=== PATIENT | female | born 1940 | race Caucasian/White ===

== ENCOUNTER 2017-02-06 14:23 | Inpatient (IN) | payer MEDICARE, OTHER ==
--- NOTE | ~2017-02-06 | HP ---
History And Physical [place] [id number] [facility] [place]. [address] NAME: MARK FORTE : 39 STATUS : ADM Obdulio PAT#: [id number] AGE: 76 ADM/REG DATE : 02/06/17 MR#: [id number] REPORT SERV DATE: 02/07/17 DICTATED BY: PARAG CALDWELL DATE: 02/07/17 REPORT STATUS : Draft TRANSCRIBED BY: MODL DATE: 02/07/17 DATE OF ADMISSION: 02/06/2017 IDENTIFYING DATA: A 76-year-old white female, whose PCP is Dr. Tree Marlow, TEST ENGINE EVALUATOR/Oncology doctor is Dr. Conway. CHIEF COMPLAINT: Renal failure. HISTORY OF PRESENT ILLNESS: This history of present illness is obtained by talking directly with the patient as well as with her son at the bedside as well as reviewing [email or web address] and [facility]. The patient has had recent falls over the last few weeks that are new for her. She also had recently been to her PCP, Dr. Marlow, and was diagnosed as having a urinary tract infection. She states she was quite surprised at this because she has always been very much able to tell when she has a urinary tract infection based on her symptoms, and the urinalysis collected on 01/29/2017 was at an office visit. She states she had no symptoms. She had a large amount of leukocyte esterase, 85 white cells, a few white cell clumps, less than 1 squamous epithelium. She also had a lab work done at that time, which showed a BUN of 60 and creatinine of 1.98. Prior to that, she had already been falling, and she had one big fall where she fell backwards down a flight of stairs. She states she did not pass out. As a result of the fall, she states she did not pass out. She did not go for medical evaluation at that time. She has had episodes intermittently of falls since then with bruises and scrapes and some episodes where she was noted to have slurring of her speech. Based on the urinalysis, she reportedly was given a prescription for trimethoprim and sulfamethoxazole. Then, she was brought to the emergency room yesterday because she was so weak, she has not been able to get up out of bed. The paramedics noticed that her heart rate was exceedingly slow. Instead of taking her to [place] as was the original destination requested by the patient, they stopped at [facility] because it was closer. She was found to be in complete heart block. She was admitted under observation status to cardiology team. Dr. Granados saw her, his partner then, Dr. Sanchez saw the patient, felt the patient needed a pacemaker. He is an peanut shaker. She had bradycardia despite isoproterenol infusion. She underwent implantation of the pacer on 02/06/2017. She also in the emergency room was noted to have acute kidney injury, so Dr. Ruddy Rendon saw her and felt she needed acute dialysis, so he asked Dr. Nelson to put in a Vas-Catheter, which was done on 02/06/2017. The patient was dialyzed. Today, Cardiology states from their perspective, she could go home, but obviously because of her renal failure, she cannot. Nephrology is not going to be her attending because she is not an established outpatient dialysis patient, already so they asked us to admit her to the hospital. She and son at bedside state they do not know of any history of chronic kidney disease for her. Reviewing her labs in the past, I see that in 01/2016, her creatinine was up to 1.32, but other than that, her renal function has been based on creatinines normal in the past. Renal ultrasound done on today shows decreased size of both kidneys with increased renal History And Physical [address] [address] NAME: MARK FORTE : 39 STATUS : ADM Obdulio PAT#: [id number] AGE: 76 ADM/REG DATE : 02/06/17 MR#: [id number] REPORT SERV DATE: 02/07/17 DICTATED BY: PARAG CALDWELL DATE: 02/07/17 REPORT STATUS : Draft TRANSCRIBED BY: MODL DATE: 02/07/17 cortex echo consistent with chronic medical renal disease that was new since 08/31/2015. The son states that after dialysis yesterday, the patient seemed much more lucid to him. REVIEW OF SYSTEMS: On review of systems, she has had some mild cough. She has had occasional diarrhea for a couple weeks, some incontinence, it is intermittent. She has a little bit of leg edema. She thinks her weight has changed, but she is not sure. She is a bit more sluggish in answering questions today than I would expect. She denies fever, chest pain, shortness of breath, abdominal pain, nausea, vomiting, rectal bleeding, melena, dysuria, rash, or tick bites. ALLERGIES: SHE CLAIMS ALLERGIES TO CODEINE AND NAPROXEN. PAST MEDICAL HISTORY: She denies any history of diabetes, COPD, myocardial infarction, congestive heart failure, stroke, seizure, peptic ulcer, biliary tract disease, liver disease, renal disease, thyroid disease, or sleep apnea. She had stage IIIC ovarian cancer, treated with surgical resection and omentectomy and chemotherapy, and she completed her chemotherapy in 08/2016. She has hypertension, history of asthma, history of migraines, and history of impaired glucose tolerance. She has had colon polyps on colonoscopies. She has had a peripheral neuropathy since chemotherapy. HOME MEDICATIONS: Tylenol p.r.n. pain, vitamin C 500 mg daily, aspirin 81 mg daily, Lipitor 10 mg q.h.s., Super B Complex once a day, Caltrate 1200 mg daily, vitamin D 400 units daily, Celexa 10 mg daily, Benadryl 25 mg at bedtime, gabapentin 100 mg at bedtime, multivitamin once a day, Prilosec 20 mg daily, Ditropan 5 mg every evening, cranberry tablet 2 tablets twice a day, L-glutamine powder three 3 times a day. PAST SURGICAL HISTORY: She had the pacer placed yesterday. She has had bilateral salpingo oophorectomy-and omentectomy. She had a port placed for chemotherapy. She has had a right shoulder replacement. She has had two lumbar spine surgeries, bilateral carpal tunnel syndrome. She has had a trigger finger release, right total knee arthroplasty, D and C, and cataract surgery. SOCIAL HISTORY: She denies use of tobacco, but she drinks at least 1-1/2 ounces of vodka per day. She is . 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 She walks without assistive device. FAMILY HISTORY: Mother had colon cancer. Father with stroke and prostate cancer. Brother with heart disease, diabetes, and there is some alcoholism in the siblings. DIAGNOSTIC DATA: Chest x-ray is a portable done on 02/06/2017 shows right shoulder replacement, port in the right chest, pacemaker in the left chest, and a right IJ catheter, may be some slight atelectasis at the right lung base, otherwise grossly clear lung spann per my interpretation. History And Physical [address] [place]. [address] NAME: MARK FORTE : 39 STATUS : ADM Obdulio PAT#: [id number] AGE: 76 ADM/REG DATE : 02/06/17 MR#: [id number] REPORT SERV DATE: 02/07/17 DICTATED BY: PARAG CALDWELL DATE: 02/07/17 REPORT STATUS : Draft TRANSCRIBED BY: MODL DATE: 02/07/17 Ultrasound 02/07/2017 shows decreased size of bilateral kidneys with increased renal cortical echotexture consistent with medical renal disease new since 08/31/2015's renal ultrasound. CT scan of the brain without contrast on 02/06/2017, no evidence of acute intracranial pathology. Mild cerebral atrophy with supratentorial white matter disease consistent with microangiopathy. Sodium 143; potassium 4.3; chloride 109; CO2 is 23, it was down to a low of 12 yesterday; BUN is 67 right now, was at a peak of 146 yesterday; creatinine is 2.69, it was at a peak of 5.55 yesterday; glucose is 86. Calcium 8.3. Liver enzymes today remarkable for albumin of 3.4, alkaline phosphatase 200, ALT of 263, AST of 188. Troponin on admission 0.04. B- natriuretic peptide on admission was 1128.4. Her last A1c was 5.3% on 01/29/2017. Lactic acid on 02/06/2017 was 0.5. Hepatitis profile on 02/06/2017 all nonreactive. HIV on that same date nonreactive. Today's white count is 5.9, hemoglobin 8.1, MCV is macrocytic at 34.3, and platelets are 137,000. Pro time on 02/06/2017 is 17.4, INR 1.4, PTT is 23.1. PHYSICAL EXAMINATION: VITAL SIGNS: Temperature is 98.7, pulse 70, respirations 20, blood pressure 163/77, and O2 saturation 94% on room air. GENERAL: A well-developed female, who appears in no acute distress. HEENT: Head is atraumatic. Pupils are equal, round, and reactive to light. Extraocular motions are intact. No scleral icterus noted. Ear canals and TMs unremarkable. No inflammatory changes noted externally. Nose, noninflamed. Septum midline. Nares patent. Mouth, moist. Good gag. No redness of the throat gums or lips. NECK: Supple. No lymph node or thyroid enlargement. The carotids have good pulses. No bruits. CHEST: There is a Vas-Catheter in the right chest. HEART: Regular rate and rhythm without murmur, gallop, click, or rub. LUNGS: Clear. Good air flow. No wheezes, no rhonchi. Normal respiratory effort. ABDOMEN: Bowel sounds positive. Soft, nondistended, nontender. No masses. No organomegaly. No bruits. EXTREMITIES: Warm. Good pulses. No clubbing, no cyanosis, no edema. No actively inflamed skin or joints. NEUROLOGIC: She is alert. She is oriented x3. Her memory is a little bit sluggish at times, but her motor is 2/5 in all four extremities. No Babinski. No clonus noted. Cranial nerves 2 through 12 are grossly normal. ASSESSMENT: 1. Acute kidney injury superimposed on chronic kidney disease (chronic kidney disease evidence is based on the renal ultrasound findings described above). The patient is status post metabolic acidosis with a bicarb that was down to 12 and status post hyperkalemia with a potassium goes up to 5.9 as part of this acute kidney injury. The patient already had evidence as of 01/29/2017 of acute kidney injury. Thereafter, she started on trimethoprim and sulfamethoxazole and was on 30 mg a day of meloxicam as well as losartan at home which may have contributed to her deterioration. It is still not clear why her renal function had dropped as of 01/29/2017. History And Physical [address] [address] NAME: MARK FORTE : 39 STATUS : ADM Obdulio PAT#: [id number] AGE: 76 ADM/REG DATE : 02/06/17 MR#: [id number] REPORT SERV DATE: 02/07/17 DICTATED BY: PARAG CALDWELL DATE: 02/07/17 REPORT STATUS : Draft TRANSCRIBED BY: MODPhilip DATE: 02/07/17 2. Status post complete heart block, treated with pacemaker, 02/06/2017. 3. Recent falls that appeared to have started prior to her acute renal failure. She does have significant peripheral neuropathies since she has been on chemotherapy. She does consume some alcohol. These may have potentially contributed to the falls, although it sounds like she does not drink enough that the family considers it a problem. 4. Acute hepatitis with elevation of ALT greater than AST, which is not consistent which is alcohol. This could be a medication, could be due to episode of low blood pressure, but I cannot find documented low blood pressures, also suggests the possibility of some intrinsic underlying liver disease. 5. Thrombocytopenia, which again suggests the possibility of liver disease especially along with elevated pro time and INR. 6. History of ovarian cancer, treated with resection and chemotherapy. 7. History of hypertension. 8. History of migraines. 9. History of chemotherapy-induced peripheral neuropathy. 10.Colon polyps. PLAN: The patient is going to be on cardiac telemetry. Hemodialysis is in process today. Nephrology will follow her up. We are going to do the anemia lab work on this patient. Also, we are also going to get CT scan of the abdomen and pelvis to look for any signs of cirrhosis, and since her alkaline phosphatase is elevated some to see if there is any signs of obstruction to her biliary system, although her total bilirubin is normal at 0.3. Family is quite concerned about her falls as is understandable, both as to the cause as well as potential traumatic results, so we are going to get an MRI of the brain if her recently placed pacemaker is pacer compatible, also have Physical Therapy assess her. We will keep her on the CIWA protocol. If she has diarrhea, we will do assessment of those. We will follow up her pro time and INR. Son is updated at the bedside at this time. RSG/MODL Parag Caldwell M.D. / [id number] CC: Ed Hull M.D. Ruddy Rendon M.D. [facility] Sanchez Conway M.D.
--- NOTE | ~2017-02-06 | CN ---
Consultation Report [facility] [address] [place]. [address] NAME: MONIKA FORTE : 39 STATUS : ADM Obdulio PAT#: [id number] AGE: 76 ADM/REG DATE : 02/06/17 MR#: [id number] REPORT SERV DATE: 02/07/17 DICTATED BY: REEMA RENDON DATE: 02/06/17 REPORT STATUS : Draft TRANSCRIBED BY: MODL DATE: 02/06/17 NEPHROLOGY CONSULT DATE OF CONSULTATION: 02/06/2017 Thank you for this consult. Chart reviewed. Patient examined. REASON FOR CONSULTATION: Acute kidney injury with hyperkalemia and metabolic acidosis with altered mental status. HISTORY OF PRESENT ILLNESS: Monika Forte is a chronically ill 76-year-old female with a history of hypertension, with a diagnosis of ovarian cancer in 2015. She underwent an exploratory laparotomy with bilateral salpingo-oophorectomy with omentectomy with radical pelvic dissection and then eventually chemotherapy. She finished her chemotherapy in August 2016 and apparently is in remission at this time. For the last five to six weeks, she has been having frequent falls and has had periods where she has hit her head. She cannot stand up because her balance is off. She has had decreased p.o. intake and has not been able to eat much. She has not had any nausea and vomiting, but has had bladder and bowel incontinence. She saw her primary care provider last week and it appears that she was in acute renal failure at that time as her creatinine was 1.9 on 01/29/2017. Previous year, her creatinine had been 0.9, and I am not having any other creatinines to compare with. She went and saw her primary care providers, recently placed on Septra last week for a UTI. She was given Septra DS one tablet twice a day for five days according to the . The patient continued to get worse and so the called 911 and they brought her to the emergency room today. Here, she was found to be in third-degree heart block with heart rate in the 20 to 30 range. She has gone for emergent pacemaker by Cardiology who apparently has admitted her. We have been asked to see her for her acute kidney injury with hyperkalemia and metabolic acidosis. I have spoken to the at length who agrees to Vas-Cath and hemodialysis after risks, benefits were explained. PAST MEDICAL HISTORY: 1. Ovarian cancer, status post surgery and chemotherapy. Apparently in remission, she finished chemotherapy in August 2016. 2. She had exploratory laparotomy with bilateral salpingo-oophorectomy with omentectomy with radical pelvic dissection in [address] Conway. 3. Hypertension. 4. Asthma. 5. Migraine headaches. 6. Right chest Port-A-Cath. 7. Previous NSAID use. 8. Chronic alcohol use. 9. Hyperlipidemia. 10.Borderline diabetes. ALLERGIES: CODEINE AND ALEVE ACCORDING TO THE . Consultation Report [address] [place]. [address] NAME: MONIKA FORTE : 39 STATUS : ADM Obdulio PAT#: [id number] AGE: 76 ADM/REG DATE : 02/06/17 MR#: [id number] REPORT SERV DATE: 02/07/17 DICTATED BY: REEMA RENDON DATE: 02/06/17 REPORT STATUS : Draft TRANSCRIBED BY: STEPHEN DATE: 02/06/17 SOCIAL HISTORY: Chronic vodka use each day. No smoking. FAMILY HISTORY: Mom had colon cancer. Dad had a stroke and prostate cancer. PRESCRIBED MEDICINES: At home include Celexa, atorvastatin, oxybutynin, omeprazole, gabapentin. She recently finished the Julra. REVIEW OF SYSTEMS: By her are not reliable due to her altered mental status. PHYSICAL EXAMINATION: VITAL SIGNS: Currently, upon examination, afebrile, blood pressure 137/55, pulse 83, respiratory rate is 18. GENERAL: She is chronically ill and on top of being acutely ill. Eyes, pupils react bilaterally. No conjunctivitis. Oropharynx, mucous membranes are dry. No lesions. NECK: Supple. No thyromegaly. No masses. Trachea is midline. LYMPHADENOPATHY: No cervical, supraclavicular, or axillary lymphadenopathy. LUNGS: Clear to auscultation. No tachypnea. CARDIOVASCULAR: Regular rate and rhythm. She has a paced rhythm. There is no JVD. GASTROINTESTINAL: Positive bowel sounds. Obese, nontender. No hepatosplenomegaly. SKIN: Decreased skin turgor. No rash. PSYCHIATRIC: Her speech is dysarthric. She is confused. She knows the year is 2016, but when I ask her the month or the day of the week, she also says 2017. She does know she is in the hospital. Her affect is very flat. NEUROLOGIC: Cranial nerves II through XII grossly intact. Sensation is grossly intact. Chest x-ray reviewed by me shows no infiltrates per my interpretation. EKG shows third-degree heart block with severe bradycardia with heart rate between 20 and 30 range. LABORATORY VALUES: Sodium 141, potassium 5, chloride 113, bicarb 12, BUN 140, creatinine 5.5, glucose 131, calcium 8.6, magnesium 3. White count 8, hemoglobin 9, hematocrit 28, platelets 169. INR is 1.4. CT brain showed no acute abnormality per the radiologist. IMPRESSION: 1. Acute kidney injury with hyperkalemia and metabolic acidosis with recent Septra use with poor p.o. intake. 2. Third-degree heart block, status post emergent pacemaker. 3. Hypertension. 4. Hyperlipidemia history. 5. History of ovarian cancer, status post surgery and chemotherapy. Finished chemo in Consultation Report [address] [place]. [address] NAME: MONIKA FORTE : 39 STATUS : ADM Obdulio PAT#: [id number] AGE: 76 ADM/REG DATE : 02/06/17 MR#: [id number] REPORT SERV DATE: 02/07/17 DICTATED BY: REEMA RENDON DATE: 02/06/17 REPORT STATUS : Draft TRANSCRIBED BY: STEPHEN DATE: 02/06/1708/2016. She is apparently in remission. 6. Altered mental status. 7. Frequent falls. PLAN: 1. Recommendation Vas-Cath and hemodialysis today and discussed with the , Jun. He agrees after risks, benefits were explained. All questions answered. He also agrees to blood transfusions if needed. There is no need for one now. 2. Stop the Septra. 3. Give IV fluids with sodium bicarbonate. 4. Check urinalysis. 5. Check renal ultrasound. 6. She is critically ill. All questions answered for the . /STEPHEN Reema Rendon M.D. / [id number] CC: Ed Pagan, M.D.
--- NOTE | ~2017-02-06 | HP ---
History And Physical [place] [id number] [facility] [place]. [address] NAME: MARK FORTE : 39 STATUS : ADM Obdulio PAT#: [id number] AGE: 76 ADM/REG DATE : 02/06/17 MR#: [id number] REPORT SERV DATE: 02/06/17 DICTATED BY: BRADLEY ESCOBEDO DATE: 02/06/17 REPORT STATUS : Draft TRANSCRIBED BY: MODL DATE: 02/06/17 DATE OF ADMISSION: 02/06/2017 REASON FOR ADMISSION: Complete heart block. HISTORY OF PRESENT ILLNESS: Ms. Forte is a pleasant 76-year-old female with a history of stage 3C ovarian cancer, status post surgical resection and chemotherapy, currently in remission per , hypertension, asthma, and hyperlipidemia, who presents with symptoms of recurrent falling, dizziness, balance disturbance as well as slurred speech that has been progressive and increasing in frequency over the past one to two weeks. Several weeks ago, she fell and this had not happened up until approximately one to two weeks ago again. Over the past one-two weeks, she has fallen several times as documented in her 's log of events. She otherwise has had intermittent slurred speech that has been more persistent as of the last three-four days. She has no cardiovascular history. In speaking with her, she has no other specific complaints at this point in time. ALLERGIES: CODEINE, NAPROSYN. PAST MEDICAL HISTORY: As above. SOCIAL HISTORY: The patient lives at home with her . Under normal circumstances, she used to function independently. She does not do drugs or smoke. She does drink wine approximately one glass per evening. FAMILY HISTORY: Noncontributory for premature cardiovascular disease. REVIEW OF SYSTEMS: As above, all other systems otherwise negative. PHYSICAL EXAMINATION: VITAL SIGNS: Blood pressure 123/85, pulse 26 beats per minute, afebrile. GENERAL: Well developed, well nourished, no acute distress. NEURO: Awake, alert and oriented x3; no focal deficits, appropriate mood. HEENT: Moist mucous membranes, anicteric sclerae, no nasal discharge. NECK: No JVD, no carotid bruit. LUNGS: Clear to auscultation bilaterally, no wheezes, rales or rhonchi. CV: Bradycardic. No murmurs, rubs, or gallops. ABD: Soft, non-tender, non-distended, no rebound or guarding. EXT: No pitting edema, normal distal pulses. SKIN: Warm, dry and intact; no rash. PERTINENT TEST FINDINGS: Potassium 5.9, creatinine 5.96, BUN 146, hemoglobin 9.5, troponin 0.04. EKG with a complete heart block. IMPRESSION AND PLAN: Ms. Forte is a pleasant 76-year-old female with hypertension, hyperlipidemia, and stage 3C ovarian cancer, status post surgical resection and History And Physical [address] [address] NAME: MARK FORTE : 39 STATUS : ADM Obdulio PAT#: [id number] AGE: 76 ADM/REG DATE : 02/06/17 MR#: [id number] REPORT SERV DATE: 02/06/17 DICTATED BY: BRADLEY ESCOBEDO DATE: 02/06/17 REPORT STATUS : Draft TRANSCRIBED BY: MODL DATE: 02/06/17 chemotherapy, who presents now with progressive symptoms of falling, slurred speech, and balance disturbance over the past one to two weeks in the setting of complete heart block. I have the following recommendations by problem below: 1. Complete heart block-n.p.o. Consult EP for pacemaker today. Continue Isuprel drip for now. She is hemodynamically stable. Check an echocardiogram. Trend enzymes. 2. Acute kidney injury-she is in worsening kidney injury with markedly elevated renal parameters, BUN 146, creatinine 5.96. This is likely due to her poor perfusion state. We will trend these, as well as have renal evaluate her pending her changes in renal parameters as well as urine output following pacemaker implantation. 3. Hypertension-controlled, manage as above. VR/MODL Bradley Escobedo MD / [id number] CC: Jake Sanchez M.D. Tree Marlow M.D.
--- NOTE | ~2017-02-06 | DS ---
Discharge Summary [facility] [address] [place]. [address] NAME: MARK FOTRE : 39 STATUS : DIS IN PAT#: [id number] AGE: 76 ADM/REG DATE : 02/07/17 MR#: [id number] REPORT SERV DATE: 02/12/17 DICTATED BY: YRN SOFIA DATE: 02/11/17 REPORT STATUS : Draft TRANSCRIBED BY: MODL DATE: 02/11/17 ADMISSION DATE: 02/07/2017 DISCHARGE DATE: 02/11/2017 HISTORY OF PRESENT ILLNESS: The patient is a 76-year-old female with a history of stage III ovarian cancer, status post surgical resection and chemotherapy, currently in remission; hyperlipidemia; hypertension; CKD, who presented to the hospital and was admitted initially by Cardiology due to complete heart block. For further details, please refer to H and P dictated by Dr. Granados on 02/06/2017. HOSPITAL COURSE: The patient was managed by Cardiology for heart block with eventual placement of a pacemaker after completion of cardiac management. The patient was noted to be in acute renal failure requiring hemodialysis. Given completion of management for complete heart block, the patient was transferred under Hospitalist Service for management of her SKYLER. Given severely elevated creatinine level from baseline, Nephrology was consulted. Status post Nephrology evaluation, it was deemed that the patient needed an emergent dialysis. Vas-Cath was placed by Surgery and hemodialysis initiated. For further details, please refer to H and P dictated by Dr. Caldwell on 02/07/2017. I assumed care of the patient on 02/09/2017. At the time of my assumption of care, dialysis was held to see if the patient's kidneys would recover. At the time of my assumption of care, the patient was hemodynamically stable. Her creatinine has progressively trended down from a high of 2.69 and it is currently 1.48. Given the significant improvement in her creatinine, her Vas-Cath will be removed today and the patient, from Nephrology standpoint, has been cleared for discharge. Other medical problems during her hospitalization included elevated liver function tests. Those have been trended throughout her hospitalization and they have been gradually trending down. In the setting of elevated liver enzymes, her statin medications for hyperlipidemia have been held pending normalization of her liver function test. Given the significant history obtained during admission of a recent episode of fall, the patient was initially evaluated by Physical Therapy with recommendations for inpatient rehab. However, during her hospital course, the patient has significantly improved with significant improvement in her balance. The patient has been reevaluated by Physical Therapy. Per their new recommendations, the patient can be discharged home with Home Health PT. Given completion of workup, given recovery of her kidneys, given her hemodynamic stability, the patient will be discharged home with Home Health PT to follow up with primary care physician. Plan has been discussed with the patient, who voices understanding and is agreeable with this plan. DISCHARGE DIAGNOSES: 1. Acute kidney injury. 2. CKD stage 3. 3. Hypertension. 4. Elevated liver enzymes. 5. Complete heart block. 6. Dyslipidemia. DISCHARGE EXAM: VITAL SIGNS: Blood pressure 141/60, pulse of 72, respirations 17, O2 Discharge Summary [address] [address] NAME: MARK FORTE : 39 STATUS : DIS IN PAT#: [id number] AGE: 76 ADM/REG DATE : 02/07/17 MR#: [id number] REPORT SERV DATE: 02/12/17 DICTATED BY: YRN SOFIA DATE: 02/11/17 REPORT STATUS : Draft TRANSCRIBED BY: MODPhilip DATE: 02/11/17 saturation 96% on room air, temperature 98.5. GENERAL: The patient lying in bed, in no acute distress. Appears stated age. Speaking in full sentences age. HEENT: Normocephalic, atraumatic. Extraocular motors intact. Moist oral mucosa. Anicteric sclerae. No conjunctival injection. No conjunctival pallor. NECK: Trachea midline and symmetric. No JVD noted. No thyromegaly present. CHEST: Nontender to palpation. CARDIOVASCULAR: Regular rate and rhythm. S1, S2 positive. 3/6 systolic murmur noted in the precordium. No gallop sounds noted. LUNGS: Clear to auscultation bilaterally. Normal respiratory effort. ABDOMEN: Positive bowel sounds. Nontender, nondistended. EXTREMITIES: No cyanosis, no clubbing, no edema. NEURO: Alert and oriented x3. No focal deficits appreciated. DISCHARGE MEDICATIONS: Amlodipine 10 mg p.o. daily, ascorbic acid 500 mg p.o. daily, aspirin 81 mg p.o. daily, citalopram 10 mg p.o. daily, vitamin D 400 units p.o. daily, Benadryl 25 mg p.o. at bedtime, gabapentin 100 mg p.o. at bedtime, multivitamin tab, oxybutynin 5 mg p.o. every evening, omeprazole 20 mg p.o. daily, atorvastatin 40 mg p.o. daily to be started on 02/18/2017. DISPOSITION: The patient will be discharged home with home PT. ACTIVITY: As tolerated. DIET: Renal diet. Greater than 30 minutes was spent coordinating care, planning discharge, counseling, dictation of note, and medication reconciliation. KINSEY/STEPHEN Yrn Sofia MD / [id number] CC: MD Tree Velazquez M.D.
--- NOTE | ~2017-02-06 | OP ---
Record Of Operation [facility] [address] [place]. [address] NAME: MARK FORTE : 38 STATUS : ADM Obdulio PAT#: [id number] AGE: 76 ADM/REG DATE : 02/06/17 MR#: [id number] REPORT SERV DATE: 02/07/17 DICTATED BY: DC NELSON DATE: 02/06/17 REPORT STATUS : Draft TRANSCRIBED BY: MODL DATE: 02/06/17 DATE OF PROCEDURE: 02/06/2017 PREOPERATIVE DIAGNOSIS: Acute kidney injury. POSTOPERATIVE DIAGNOSIS: Acute kidney injury. PROCEDURE: Right IJ Vas-Cath. SURGEON: Dc Nelson M.D. WEBBING SE[employer] POUND NET: None. ANESTHESIA: Local. INDICATIONS: The patient is a 76-year-old female who has acute kidney injury with uremia and hyperkalemia. I talked to her and her about the risks, benefits, and alternatives of Vas-Cath placement. They agreed to proceed. DESCRIPTION OF PROCEDURE: After informed consent was obtained, the patient's right neck and chest were prepped and draped in usual sterile fashion. Ultrasound-guided access was obtained of the right internal jugular vein. The ultrasound image was documented on the chart. I passed a wire centrally. I dilated the tract. I placed a 15 cm Vas-Cath. I aspirated and flushed it. It was packed with saline. A sterile dressing was applied after it was sutured in place. A chest x-ray was ordered to confirm proper placement. The patient tolerated the procedure well without any intraprocedural complications noted. DISABILITY PROGRAM NAVIGATOR/STEPHEN Dc Nelson M.D. / [id number] CC: Ed Pagan M.D. Brant Holt, M.D.
--- NOTE | ~2017-02-06 | CN ---
Consultation Report [facility] [address] [place]. [address] NAME: MONIKA FORTE : 38 STATUS : ADM Obdulio PAT#: [id number] AGE: 76 ADM/REG DATE : 02/06/17 MR#: [id number] REPORT SERV DATE: 02/06/17 DICTATED BY: JAKE SANCHEZ DATE: 02/06/17 REPORT STATUS : Draft TRANSCRIBED BY: MODL DATE: 02/06/17 URGENT ELECTROPHYSIOLOGY CONSULTATION DATE OF CONSULTATION: 02/06/2017 REQUESTING PHYSICIAN: Bradley Granados MD INDICATIONS: Complete AV block, alteration in mental status, and falls. HISTORY OF PRESENT ILLNESS: Monika Forte is a 76-year-old female, who has had several weeks of progressive weakness, several falls, some confusion, and loss of balance. She presented to the emergency room via EMS this morning and found to be in complete AV block. She has started on Isuprel drip and despite that continues to have third-degree AV block with junctional escape in the 30s. On my examination, she has some confusion and difficult time answering questions. Her is present. We were asked to see the patient by Dr. Granados. No history of ischemic heart disease or kidney disease. PAST MEDICAL HISTORY: Treated ovarian cancer. HOME MEDICATIONS: Listed in [facility] form and reviewed. SOCIAL HISTORY: No present smoking. FAMILY HISTORY: Reviewed and noncontributory. REVIEW OF SYSTEMS: As per the HPI. Otherwise, all other review of systems are negative. PHYSICAL EXAMINATION: VITAL SIGNS: Blood pressure 118/78, pulse ranges between 32 and 78 beats per minute. GENERAL: Appears stated age, no distress. EYES: Sclerae anicteric, no arcus senilis. MOUTH: Oral mucosa moist, lips acyanotic. NECK: Jugular venous pressure normal, no carotid bruits. LUNGS: Clear to auscultation bilaterally, normal inspiratory effort. CARDIAC: Irregular rhythm with a 2/6 systolic murmur and bradycardic response. ABDOMEN: Soft, nondistended, nontender. EXTREMITIES: No edema. SKIN: Warm and dry. NEURO/PSYCH: Awake, but confused and has difficult time answering questions. LABORATORY DATA: Sodium 139, potassium 5.9, creatinine 5.46, hemoglobin 9.5, and troponin 0.04. Consultation Report [facility] [address] [place]. [address] NAME: MONIKA FORTE : 38 STATUS : ADM Obdulio PAT#: [id number] AGE: 76 ADM/REG DATE : 02/06/17 MR#: [id number] REPORT SERV DATE: 02/06/17 DICTATED BY: JAKE SANCHEZ DATE: 02/06/17 REPORT STATUS : Draft TRANSCRIBED BY: MODL DATE: 02/06/17 IMPRESSION: 1. Falls. 2. Complete atrioventricular block with bradycardia despite isoproterenol infusion. 3. Acute kidney injury. 4. History of treated ovarian cancer with a right chest Port-A-Cath. RECOMMENDATIONS: Support rate with Isuprel or dopamine. Plan to proceed with implantation of a dual-chamber pacemaker. I discussed the procedure with the patient and family including her . Risks include, but not limited to bleeding, infection, vascular complications, failure to place the lead, lead dislodgement, pneumothorax. All questions were answered. The patient and family wished to proceed. Otherwise, IV fluids for hydration and renal assessment. BIANCA/STEPHEN Jake Sanchez M.D. / [id number] CC: Ed Pagan M.D.
[2017-02-06 12:59] LABS: BASOPHILS 0.2 %; BASOPHILS ABSOLUTE 0.02 10/3/uL (0.0-0.16); EOSINOPHILS 0.7 %; EOSINOPHILS ABSOLUTE 0.06 10/3/uL (0.0-0.53); ER CBC TAT 0 Hrs 07 Mins; HEMOGLOBIN 9.5 g/dL (12.0-16.0); IMMATURE GRANULOCYTES 0.6 %; IMMATURE GRANULOCYTES ABSOLUTE 0.05 10/3/uL (0.0-0.11); LYMPHOCYTES 10.9 %; LYMPHOCYTES ABSOLUTE 0.95 10/3/uL (0.67-4.30); MEAN CORPUS HGB CONC 33.5 g/dL (32.0-36.0); MEAN CORPUSCULAR HEMOGLOB 34.2 pg (26.0-34.0); MEAN CORPUSCULAR VOLUME 102.2 fL (80-100); MEAN PLATELET VOLUME 10.3 fL (9.2-13.0); MONOCYTES 7.7 %; MONOCYTES ABSOLUTE 0.67 10/3/uL (0.21-1.20); NEUTROPHILS 79.9 %; NEUTROPHILS ABSOLUTE 6.98 10/3/uL (2.02-8.40); NUCLEATED RED BLOOD CELLS 3.1 /100WBC (0-0); RBC DISTRIBUTION WIDTH 13.7 % (12.0-16.0); RED CELL COUNT 2.78 10/6/uL (4.0-5.6); WHITE BLOOD CELLS 8.7 10/3/uL (4.5-10.5)
[2017-02-06 13:00] LABS: HEMATOCRIT 28.4 % (36.0-48.0); MANUAL DIFF NO %; PLATELET COUNT 169 10/3/uL (150-400)
[2017-02-06 13:05] LABS: INTERNATIONAL NORMAL RATI 1.4 UNITS (-); PARTIAL THROMBO TIME 23.1 SEC (22.5-37.2)
[2017-02-06 13:06] LABS: PROTIME (NOT ORD) 17.4 SEC (12.0-14.5)
[2017-02-06 13:14] LABS: CALCIUM, SERUM 8.9 MG/DL (8.5-10.4); CHEST PAIN PROFILE TAT 0 Hrs 22 Mins; CHLORIDE, SERUM 110 MMOL/L (96-112); SODIUM, SERUM 139 MMOL/L (135-148); TROPONIN I 0.04 NG/ML (<0.05)
[2017-02-06 13:15] LABS: BUN (BLOOD UREA NITROGEN) 146 MG/DL (6-23); CO2 (CARBON DIOXIDE) 16 MMOL/L (24-34); CREATININE 5.46 MG/DL (0.55-1.02); GFR AFRICAN AMERICAN 8 ML/MIN (>=60); GFR NON AFRICAN AMERICAN 7 ML/MIN (>=60); GLUCOSE, SERUM 136 MG/DL (60-99); POTASSIUM, SERUM 5.9 MMOL/L (3.5-5.3)
[~2017-02-06 14:23] MED LIST: ACET500CAP PO; ASAB PO; BEN25 PO; BIST PO; CALTRA600D PO; CALTRAT600 PO; CELEXA10 PO; CRANBERRY TABLET PO; CRANBERRY1 TAB OR; CRANBERRY425 MG PO; DITRO5 PO; DSS PO; ENDOCET1 TAB PO; FISH OIL1200 MG PO; FISH-EPA1000 MG PO; GLUCCHONDR PO; HALF81 PO; HYZAAR 100/25 T1 TAB PO; L-GLUTAMINE POWDER PO; LIBRAX PO; LIPITOR10 PO; LORTAB 5 PO; MELA3 PO; MELATONIN5 M1 PO; METHOC500B PO; MOBIC15 MG PO; MOBIC7.5 PO; MULTIPLE VIT PO; MULTIVITAMI1 PO; NEUR100 PO; NEUR300 PO; PCET PO; PRILO PO; PVC V; SUPER B COMP PO; VITAMIN C100 M1 PO; VITAMIN D31000 UNIT PO; VITAMIN D400 UNI1 PO; VITC500 PO; ZANTAC 75 PO; ZANTAC150 MG PO; ZESTORETIC1 TA1 PO; ZESTORETIC1 TAB PO; ZOCOR40 PO; ZOFRAN8 PO; [UNRECOGNIZED DRUG - CODE] PO
[2017-02-06 19:13] LABS: CALCIUM, SERUM 8.6 MG/DL (8.5-10.4); CHLORIDE, SERUM 113 MMOL/L (96-112); CREATININE 5.55 MG/DL (0.55-1.02); GFR AFRICAN AMERICAN 8 ML/MIN (>=60); GFR NON AFRICAN AMERICAN 7 ML/MIN (>=60); GLUCOSE, SERUM 131 MG/DL (60-99); SODIUM, SERUM 141 MMOL/L (135-148)
[2017-02-06 19:14] LABS: CO2 (CARBON DIOXIDE) 12 MMOL/L (24-34)
[2017-02-06 19:15] LABS: BUN (BLOOD UREA NITROGEN) 140 MG/DL (6-23)
[2017-02-06 23:39] LABS: ALBUMIN 3.6 G/DL (3.5-5.0); CALCIUM, SERUM 8.5 MG/DL (8.5-10.4); CHLORIDE, SERUM 114 MMOL/L (96-112); PHOSPHORUS, SERUM 5.9 MG/DL (2.5-4.5); POTASSIUM, SERUM 5.3 MMOL/L (3.5-5.3); SODIUM, SERUM 143 MMOL/L (135-148)
[2017-02-06 23:41] LABS: BUN (BLOOD UREA NITROGEN) 137 MG/DL (6-23); CO2 (CARBON DIOXIDE) 17 MMOL/L (24-34); CPK 131 U/L (0-200); CREATININE 4.85 MG/DL (0.55-1.02); GFR AFRICAN AMERICAN 9 ML/MIN (>=60); GFR NON AFRICAN AMERICAN 8 ML/MIN (>=60); GLUCOSE, SERUM 89 MG/DL (60-99)
[2017-02-07 07:56] LABS: BASOPHILS 0.2 %; BASOPHILS ABSOLUTE 0.01 10/3/uL (0.0-0.16); EOSINOPHILS ABSOLUTE 0.12 10/3/uL (0.0-0.53); HEMATOCRIT 23.4 % (36.0-48.0); HEMOGLOBIN 8.1 g/dL (12.0-16.0); IMMATURE GRANULOCYTES 0.5 %; IMMATURE GRANULOCYTES ABSOLUTE 0.03 10/3/uL (0.0-0.11); LYMPHOCYTES 20.3 %; MANUAL DIFF NO %; MEAN CORPUS HGB CONC 34.6 g/dL (32.0-36.0); MEAN CORPUSCULAR HEMOGLOB 34.3 pg (26.0-34.0); MEAN CORPUSCULAR VOLUME 99.2 fL (80-100); MEAN PLATELET VOLUME 9.8 fL (9.2-13.0); MONOCYTES 8.8 %; MONOCYTES ABSOLUTE 0.52 10/3/uL (0.21-1.20); NEUTROPHILS 68.2 %; NEUTROPHILS ABSOLUTE 4.02 10/3/uL (2.02-8.40); PLATELET COUNT 137 10/3/uL (150-400); RBC DISTRIBUTION WIDTH 13.5 % (12.0-16.0); RED CELL COUNT 2.36 10/6/uL (4.0-5.6); WHITE BLOOD CELLS 5.9 10/3/uL (4.5-10.5)
[2017-02-07 08:10] LABS: A/G RATIO 1.3 (0.7-1.9); ALBUMIN 3.4 G/DL (3.5-5.0); CALCIUM, SERUM 8.3 MG/DL (8.5-10.4); CHLORIDE, SERUM 109 MMOL/L (96-112); GLOBULIN 2.6 G/DL (2.5-4.1); GLUCOSE, SERUM 86 MG/DL (60-99); POTASSIUM, SERUM 4.3 MMOL/L (3.5-5.3); SGOT(AST) 188 U/L (5-40); SGPT(ALT) 263 U/L (5-65); SODIUM, SERUM 143 MMOL/L (135-148); TOTAL BILIRUBIN 0.3 MG/DL (0-1.2)
[2017-02-07 08:11] LABS: ALKALINE PHOSPHATASE 200 U/L (45-117); BUN (BLOOD UREA NITROGEN) 67 MG/DL (6-23); CO2 (CARBON DIOXIDE) 23 MMOL/L (24-34); CREATININE 2.69 MG/DL (0.55-1.02); GFR AFRICAN AMERICAN 19 ML/MIN (>=60); GFR NON AFRICAN AMERICAN 16 ML/MIN (>=60); PHOSPHORUS, SERUM 3.5 MG/DL (2.5-4.5)
[2017-02-07 08:33] LABS: HEPATITIS B SURFACE ANTIGEN NON-REACTIVE (NON-REACT)
[2017-02-07 09:00] LABS: HEPATITIS C ANTIBODY NON-REACTIVE (NON-REACT)
[2017-02-07 09:01] LABS: HEPATITIS B CORE AB IGM NON-REACTIVE (NON-REAC)
[2017-02-07 09:02] LABS: HIV COMBO NON-REACTIVE (NON REAC)
[2017-02-07 09:03] LABS: HEP A ANTIBODY IGM NON-REACTIVE (NON-REACT)
[2017-02-07 18:06] LABS: ULTRASENSITIVE TSH 1.54 MCIU/ML (0.358-3.740)
[2017-02-08 03:53] LABS: BASOPHILS 0.2 %; BASOPHILS ABSOLUTE 0.01 10/3/uL (0.0-0.16); EOSINOPHILS 3.8 %; EOSINOPHILS ABSOLUTE 0.23 10/3/uL (0.0-0.53); HEMATOCRIT 25.7 % (36.0-48.0); HEMOGLOBIN 8.4 g/dL (12.0-16.0); IMMATURE GRANULOCYTES 0.2 %; IMMATURE GRANULOCYTES ABSOLUTE 0.01 10/3/uL (0.0-0.11); LYMPHOCYTES 22.4 %; LYMPHOCYTES ABSOLUTE 1.34 10/3/uL (0.67-4.30); MEAN CORPUSCULAR HEMOGLOB 33.2 pg (26.0-34.0); MEAN CORPUSCULAR VOLUME 101.6 fL (80-100); MEAN PLATELET VOLUME 9.3 fL (9.2-13.0); MONOCYTES 8.9 %; MONOCYTES ABSOLUTE 0.53 10/3/uL (0.21-1.20); NEUTROPHILS 64.5 %; NEUTROPHILS ABSOLUTE 3.86 10/3/uL (2.02-8.40); PLATELET COUNT 118 10/3/uL (150-400); RBC DISTRIBUTION WIDTH 13.8 % (12.0-16.0); RED CELL COUNT 2.53 10/6/uL (4.0-5.6)
[2017-02-08 03:54] LABS: MANUAL DIFF NO %; MEAN CORPUS HGB CONC 32.7 g/dL (32.0-36.0)
[2017-02-08 04:01] LABS: INTERNATIONAL NORMAL RATI 1.3 UNITS (-); PARTIAL THROMBO TIME 23.1 SEC (22.5-37.2); PROTIME (NOT ORD) 15.6 SEC (12.0-14.5)
[2017-02-08 04:07] LABS: CALCIUM, SERUM 8.1 MG/DL (8.5-10.4); CHLORIDE, SERUM 109 MMOL/L (96-112); CO2 (CARBON DIOXIDE) 26 MMOL/L (24-34); GFR AFRICAN AMERICAN 42 ML/MIN (>=60); GFR NON AFRICAN AMERICAN 36 ML/MIN (>=60); GLUCOSE, SERUM 94 MG/DL (60-99); POTASSIUM, SERUM 4.6 MMOL/L (3.5-5.3); SODIUM, SERUM 145 MMOL/L (135-148)
[2017-02-08 04:08] LABS: BUN (BLOOD UREA NITROGEN) 26 MG/DL (6-23); CREATININE 1.41 MG/DL (0.55-1.02)
[2017-02-08 04:17] LABS: A/G RATIO 1.2 (0.7-1.9); BUN (BLOOD UREA NITROGEN) 26 MG/DL (6-23); CALCIUM, SERUM 8.1 MG/DL (8.5-10.4); CHLORIDE, SERUM 109 MMOL/L (96-112); CO2 (CARBON DIOXIDE) 26 MMOL/L (24-34); CREATININE 1.44 MG/DL (0.55-1.02); GFR AFRICAN AMERICAN 40 ML/MIN (>=60); GFR NON AFRICAN AMERICAN 35 ML/MIN (>=60); GLOBULIN 2.6 G/DL (2.5-4.1); GLUCOSE, SERUM 92 MG/DL (60-99); POTASSIUM, SERUM 4.5 MMOL/L (3.5-5.3); SGOT(AST) 135 U/L (5-40); SGPT(ALT) 204 U/L (5-65); SODIUM, SERUM 145 MMOL/L (135-148); TOTAL BILIRUBIN 0.5 MG/DL (0-1.2); TOTAL PROTEIN 5.6 G/DL (6.0-8.5)
[2017-02-08 04:26] LABS: ALKALINE PHOSPHATASE 182 U/L (45-117)
[2017-02-09 05:39] LABS: BASOPHILS 0.2 %; BASOPHILS ABSOLUTE 0.01 10/3/uL (0.0-0.16); EOSINOPHILS 4.8 %; EOSINOPHILS ABSOLUTE 0.26 10/3/uL (0.0-0.53); HEMATOCRIT 25.5 % (36.0-48.0); HEMOGLOBIN 8.1 g/dL (12.0-16.0); IMMATURE GRANULOCYTES 0.4 %; IMMATURE GRANULOCYTES ABSOLUTE 0.02 10/3/uL (0.0-0.11); LYMPHOCYTES 22.4 %; LYMPHOCYTES ABSOLUTE 1.21 10/3/uL (0.67-4.30); MEAN CORPUS HGB CONC 31.8 g/dL (32.0-36.0); MEAN CORPUSCULAR HEMOGLOB 32.8 pg (26.0-34.0); MEAN CORPUSCULAR VOLUME 103.2 fL (80-100); MEAN PLATELET VOLUME 9.4 fL (9.2-13.0); MONOCYTES 8.5 %; MONOCYTES ABSOLUTE 0.46 10/3/uL (0.21-1.20); NEUTROPHILS 63.7 %; NEUTROPHILS ABSOLUTE 3.43 10/3/uL (2.02-8.40); PLATELET COUNT 98 10/3/uL (150-400); RBC DISTRIBUTION WIDTH 13.9 % (12.0-16.0); RED CELL COUNT 2.47 10/6/uL (4.0-5.6); WHITE BLOOD CELLS 5.4 10/3/uL (4.5-10.5)
[2017-02-09 05:45] LABS: MANUAL DIFF NO %
[2017-02-09 06:02] LABS: A/G RATIO 1.2 (0.7-1.9); ALBUMIN 3.1 G/DL (3.5-5.0); CALCIUM, SERUM 8.5 MG/DL (8.5-10.4); CHLORIDE, SERUM 110 MMOL/L (96-112); CO2 (CARBON DIOXIDE) 25 MMOL/L (24-34); GFR AFRICAN AMERICAN 36 ML/MIN (>=60); GFR NON AFRICAN AMERICAN 31 ML/MIN (>=60); GLOBULIN 2.5 G/DL (2.5-4.1); GLUCOSE, SERUM 91 MG/DL (60-99); PHOSPHORUS, SERUM 3.1 MG/DL (2.5-4.5); POTASSIUM, SERUM 4.4 MMOL/L (3.5-5.3); SGOT(AST) 97 U/L (5-40); SGPT(ALT) 161 U/L (5-65); SODIUM, SERUM 144 MMOL/L (135-148); TOTAL BILIRUBIN 0.7 MG/DL (0-1.2); TOTAL PROTEIN 5.6 G/DL (6.0-8.5)
[2017-02-09 06:06] LABS: ALKALINE PHOSPHATASE 166 U/L (45-117); BUN (BLOOD UREA NITROGEN) 31 MG/DL (6-23)
[2017-02-10 06:21] LABS: BASOPHILS 0.2 %; BASOPHILS ABSOLUTE 0.01 10/3/uL (0.0-0.16); EOSINOPHILS 6.4 %; EOSINOPHILS ABSOLUTE 0.37 10/3/uL (0.0-0.53); HEMATOCRIT 25.7 % (36.0-48.0); HEMOGLOBIN 8.5 g/dL (12.0-16.0); IMMATURE GRANULOCYTES 0.3 %; IMMATURE GRANULOCYTES ABSOLUTE 0.02 10/3/uL (0.0-0.11); LYMPHOCYTES 17.2 %; LYMPHOCYTES ABSOLUTE 0.99 10/3/uL (0.67-4.30); MEAN CORPUS HGB CONC 33.1 g/dL (32.0-36.0); MEAN CORPUSCULAR HEMOGLOB 33.9 pg (26.0-34.0); MEAN CORPUSCULAR VOLUME 102.4 fL (80-100); MONOCYTES 10.1 %; MONOCYTES ABSOLUTE 0.58 10/3/uL (0.21-1.20); NEUTROPHILS 65.8 %; NEUTROPHILS ABSOLUTE 3.78 10/3/uL (2.02-8.40); PLATELET COUNT 92 10/3/uL (150-400); RED CELL COUNT 2.51 10/6/uL (4.0-5.6); WHITE BLOOD CELLS 5.8 10/3/uL (4.5-10.5)
[2017-02-10 06:23] LABS: MANUAL DIFF NO %
[2017-02-10 06:38] LABS: A/G RATIO 1.1 (0.7-1.9); ALBUMIN 2.9 G/DL (3.5-5.0); ALKALINE PHOSPHATASE 151 U/L (45-117); BUN (BLOOD UREA NITROGEN) 33 MG/DL (6-23); CALCIUM, SERUM 9.1 MG/DL (8.5-10.4); CHLORIDE, SERUM 110 MMOL/L (96-112); CO2 (CARBON DIOXIDE) 26 MMOL/L (24-34); CREATININE 1.55 MG/DL (0.55-1.02); GFR AFRICAN AMERICAN 37 ML/MIN (>=60); GFR NON AFRICAN AMERICAN 32 ML/MIN (>=60); GLOBULIN 2.7 G/DL (2.5-4.1); GLUCOSE, SERUM 99 MG/DL (60-99); POTASSIUM, SERUM 4.7 MMOL/L (3.5-5.3); SGOT(AST) 62 U/L (5-40); SGPT(ALT) 120 U/L (5-65); SODIUM, SERUM 144 MMOL/L (135-148); TOTAL BILIRUBIN 0.8 MG/DL (0-1.2); TOTAL PROTEIN 5.6 G/DL (6.0-8.5)
[2017-02-11 05:21] LABS: BASOPHILS 0.2 %; BASOPHILS ABSOLUTE 0.01 10/3/uL (0.0-0.16); HEMATOCRIT 26.7 % (36.0-48.0); HEMOGLOBIN 8.8 g/dL (12.0-16.0); IMMATURE GRANULOCYTES 0.3 %; IMMATURE GRANULOCYTES ABSOLUTE 0.02 10/3/uL (0.0-0.11); LYMPHOCYTES 18.4 %; LYMPHOCYTES ABSOLUTE 1.22 10/3/uL (0.67-4.30); MEAN CORPUSCULAR HEMOGLOB 33.3 pg (26.0-34.0); MEAN CORPUSCULAR VOLUME 101.1 fL (80-100); MEAN PLATELET VOLUME 9.6 fL (9.2-13.0); MONOCYTES 9.7 %; MONOCYTES ABSOLUTE 0.64 10/3/uL (0.21-1.20); NEUTROPHILS 65.4 %; NEUTROPHILS ABSOLUTE 4.33 10/3/uL (2.02-8.40); PLATELET COUNT 97 10/3/uL (150-400); RED CELL COUNT 2.64 10/6/uL (4.0-5.6); WHITE BLOOD CELLS 6.6 10/3/uL (4.5-10.5)
[2017-02-11 05:40] LABS: ALKALINE PHOSPHATASE 147 U/L (45-117); BUN (BLOOD UREA NITROGEN) 33 MG/DL (6-23); CHLORIDE, SERUM 108 MMOL/L (96-112); CO2 (CARBON DIOXIDE) 25 MMOL/L (24-34); CREATININE 1.48 MG/DL (0.55-1.02); GFR AFRICAN AMERICAN 39 ML/MIN (>=60); GFR NON AFRICAN AMERICAN 34 ML/MIN (>=60); GLOBULIN 3.1 G/DL (2.5-4.1); GLUCOSE, SERUM 95 MG/DL (60-99); SGPT(ALT) 102 U/L (5-65); SODIUM, SERUM 142 MMOL/L (135-148); TOTAL BILIRUBIN 0.7 MG/DL (0-1.2); TOTAL PROTEIN 6.1 G/DL (6.0-8.5)
[2017-02-11 05:43] LABS: POTASSIUM, SERUM 4.6 MMOL/L (3.5-5.3); SGOT(AST) 68 U/L (5-40)
[2017-02-11 05:48] LABS: MANUAL DIFF NO %
[2017-02-11] MEDS ORDERED: ULTRAM50 PO (13:46)
[2017-02-11] MEDS ORDERED: NORV10 PO (13:47)
[2017-02-11] MEDS ORDERED: LIPITOR40 PO (13:47)
[2017-02-11 13:57] LABS: HEPARIN-INDUCED PLATELET AB NEGATIVE (NEGATIVE); HIT PATIENT O.D. 0.028 OD (0.000-0.299)
== END 2017-02-11 17:57 | disposition home or self-care (01) | DRG 242 ==
LOC: ER 14:23 → SSU2 14:30 → 2SO 02-07 16:50
PROVIDERS: Emergency Medicine; Hospitalist; Internal Medicine Cardiovascular Disease; Internal Medicine Nephrology; Student in an Organized Health Care Education/Training Program
PROC: 0JH606Z Insertion of Pacemaker, Dual Chamber into Chest Subcutaneous Tissue and Fascia, Open Approach (ICD-10-PCS; 2017-02-06)
PROC: 02H63JZ Insertion of Pacemaker Lead into Right Atrium, Percutaneous Approach (ICD-10-PCS; 2017-02-06)
PROC: 02HK3JZ Insertion of Pacemaker Lead into Right Ventricle, Percutaneous Approach (ICD-10-PCS; 2017-02-06)
PROC: 5A1D60Z (ICD-10-PCS; 2017-02-06)
PROC: 05HM33Z Insertion of Infusion Device into Right Internal Jugular Vein, Percutaneous Approach (ICD-10-PCS; principal; 2017-02-07)
PROC: B543ZZA Ultrasonography of Right Jugular Veins, Guidance (ICD-10-PCS; 2017-02-07)
PROC: 5A1D60Z (ICD-10-PCS; 2017-02-07)
DX: I44.2 Atrioventricular block, complete (principal); G93.41 Metabolic encephalopathy; N17.9 Acute kidney failure, unspecified; E87.2 Acidosis; E87.5 Hyperkalemia; D69.6 Thrombocytopenia, unspecified; N18.3 Chronic kidney disease, stage 3 (moderate); D75.82 Heparin induced thrombocytopenia (HIT); B17.9 Acute viral hepatitis, unspecified; G62.0 Drug-induced polyneuropathy; I12.9 Hypertensive chronic kidney disease with stage 1 through stage 4 chronic kidney disease, or unspecified chronic kidney disease; T45.1X5A Adverse effect of antineoplastic and immunosuppressive drugs, initial encounter; Z96.611 Presence of right artificial shoulder joint; E78.5 Hyperlipidemia, unspecified; J45.909 Unspecified asthma, uncomplicated; G43.909 Migraine, unspecified, not intractable, without status migrainosus; Z91.81 History of falling; Z88.5 Allergy status to narcotic agent; Z88.6 Allergy status to analgesic agent; Z85.43 Personal history of malignant neoplasm of ovary; Z92.21 Personal history of antineoplastic chemotherapy; Z98.890 Other specified postprocedural states; Z82.3 Family history of stroke; Z80.0 Family history of malignant neoplasm of digestive organs; Z80.42 Family history of malignant neoplasm of prostate; Z82.49 Family history of ischemic heart disease and other diseases of the circulatory system; Z83.3 Family history of diabetes mellitus; Z72.89 Other problems related to lifestyle; Z86.010 Personal history of colon polyps
CPT/HCPCS: 33208; 36556; 70450; 71010; 74176; 76775; 80048; 80053; 80069; 80074; 82550; 82728; 83540; 83550; 83605; 83735; 83880; 84100; 84443; 84484; 85025; 85610; 85730; 86022; 87040; 87389; 93005; 93306; 96365; 97116-GP; 97162-GP; 99291; A9270-GY; C1750; C1785; C1892; C1898; C8929; G0257; G8978-CK-GP; G8979-CI-GP; J0360; J0690; J2405; J2710; J3010; J3411; Q9957